=== PATIENT | male | born 1965 | race Caucasian/White ===

== ENCOUNTER 2024-04-12 13:32 | Outpatient (AMB) | payer BC, SELFPAY ==
[2024-04-12 13:36] VITALS: BP 160/98; PULSE 80; O2SAT 99; BMI 24.4
--- NOTE | 2024-04-12 13:36 | MHC.PC.OV ---
Vital Signs 04/12/24 13:36 04/12/24 14:16 Height 6 ft Weight 180 lb BMI 24.4 BP 160/98 H 148/82 H Blood Pressure Location Lt brachial Lt brachial Position Sitting Sitting Pulse 80 Pulse Source Pulse Oximeter Pulse Oximetry (%) 99 Oxygen Delivery Method Room Air Intake Visit Reasons: New Patient Intake Note: Patient is a new patient here to establish care Environmental Services Aide Required: No Allergies No Known Allergies Allergy (Verified 04/12/24 13:40) Medication List - Last Reconciled 04/12/24 by Qamar Fletcher MD tadalafil 10 mg PO DAILY PRN Tobacco use date assessed: 04/12/24 Dental Screening Dental Screen Date: 04/12/24 Did you have a dental visit in the last 12 months?: Yes Did you have a dental problem in the last 6 months where you did not have access to dental care?: No Was dental information given to patient?: Patient has dentist HPI New Patient HPI Details 59-year-old male seeing for the 1st time.gluten free diet PFSH Surgical History (Updated 04/12/24 @ 14:21 by Qamar Fletcher MD) History of vasectomy Hx of appendectomy Social History (Updated 04/12/24 @ 14:22 by Qamar Fletcher MD) Housing: House Alcohol intake: current Comment: once a month 1 drink Patient Tobacco Use Status: Never used Tobacco service: No Current occupational status: employed Cognitive needs: No Hearing needs: No Vision needs: No Questionnaire PHQ-9 Over the last 2 weeks, how often have you been bothered by any of the following problems? 1. Little interest or pleasure in doing things: not at all 2. Feeling down, depressed, or hopeless: not at all 3. Trouble falling or staying asleep, or sleeping too much: not at all 4. Feeling tired or having little energy: not at all 5. Poor appetite or overeating: not at all 6. Feeling bad about yourself - or that you are a failure or have let yourself or your family down: not at all 7. Trouble concentrating on things, such as reading the newspaper or watching television: not at all 8. Moving or speaking so slowly that other people could have noticed. Or the opposite - being so fidgety or restless that you have been moving around a lot more than usual: not at all 9. Thoughts that you would be better off or of hurting yourself in some way: not at all Total score: 0 Source: Developed by Drs. Sage Izaguirre, Micki Black, Escobar Reynoso and colleagues, with an educational john from [employer]. Thrive Questionnaire Date Thrive assessed: 04/09/24 I am a: Patient What is your living situation today?: I have a steady place to live Within the past 12 months, did the food you bought not last and you didn't have the money to get more?: Never true Within the past 12 months, did you worry whether your food would run out before you got money to buy more?: Never true Do you have trouble paying for medicines?: No Do you have trouble getting transportation to medical appointments?: No Do you have trouble paying your heating and electricity bill?: No Do you have trouble taking care of your child, family member or friend?: No Do you have trouble with day-to-day activities such as bathing, preparing meals, shopping, managing finances, etc.?: No Are you currently unemployed and looking for a job?: No Are you interested in more education?: I choose not to answer this question Please select the resources that you would like help with: None Currently or been in a relationship where the following occur: No concerns reported THRIVE Score: 0 AUDIT C Alcohol Use Questionnaire (AUDIT-C) 1. How often do you have a drink containing alcohol?: Monthly or less 2. How many drinks containing alcohol do you have on a typical day when you are drinking?: 1 or 2 3. How often do you have six or more drinks on one occasion?: Never Total Score: 1 ALONSO-7 AMB Questionnaire ALONSO-7 Date ALONSO - 7 assessed: 04/12/24 Feeling nervous, anxious, or on edge: 0 = Not at all Not being able to stop or control worryin = Not at all Worrying too much about different things: 0 = Not at all Trouble relaxin = Not at all Being so restless that it is hard to sit still: 0 = Not at all Becoming easily annoyed or irritable: 0 = Not at all Feeling afraid as if something awful might happen: 0 = Not at all Total ALONSO-7 score (0-4 normal; 5-9 mild; 10-14 moderate; 15-21 severe): 0 Source: Developed by Drs. Sage Izaguirre, Micki Black, Escobar Reynoso and colleagues, with an educational john from [employer]. ALONSO-7 Assessment Billing ALONSO-7 Assessment Tool: ALONSO-7 Assessment 22841 Physical exam (Primary Care) Vital Signs: Last Vital Signs Pulse 80 04/12/24 13:36 BP 148/82 H 04/12/24 14:16 Pulse Ox 99 04/12/24 13:36 Oxygen Delivery Method Room Air 04/12/24 13:36 BMI result Body Mass Index 24.4 Tobacco/Smoking Status: Tobacco use Status Tobacco use date assessed 04/12/24 04/12/24 13:37 Patient Tobacco Use Status Never used Tobacco 04/12/24 14:22 PHQ-9: PHQ-9 Score PHQ-9: Total score 0 04/12/24 14:12 Thrive Assessment: Date of Thrive Assessment Date Thrive assessed 04/09/24 04/12/24 13:37 Currently or been in a relationship where the following occur: No concerns reported Const General: alert; No acute distress Eyes Conjunctivae: conjunctivae normal Resp Auscultation: clear to auscultation bilaterally Cardio Rate: regular rate Rhythm: regular rhythm GI Inspection: Yes normal to inspection Extrem General: Yes normal to inspection and No edema Coding Level of Care Code New Pt Level 4 (61397) Diagnoses Colon cancer screening Z12.11 Erectile dysfunction due to arterial insufficiency N52.01 Erectile dysfunction type: vasculogenic Vasculogenic erectile dysfunction type: due to arterial insufficiency Blood pressure elevated without history of HTN R03.0 Additional Codes ALONSO-7 Assessment Billing - ALONSO-7 Assessment Tool: ALONSO-7 Assessment [id number] ([id number]) Assessment & Plan Assessment & Plan (1) Colon cancer screening: Code(s): Z12.11 - Encounter for screening for malignant neoplasm of colon Category: Medical Plan: Referral to Gastroenterology done (2) Erectile dysfunction: Code(s): N52.9 - Male erectile dysfunction, unspecified Category: Medical Qualifiers: Erectile dysfunction type: vasculogenic Vasculogenic erectile dysfunction type: due to arterial insufficiency Qualified Code(s): N52.01 - Erectile dysfunction due to arterial insufficiency Plan: Refill on tadalafil (3) Blood pressure elevated without history of HTN: Code(s): R03.0 - Elevated blood-pressure reading, without diagnosis of hypertension Category: Medical Plan: Advised to monitor blood pressure and record. Meanwhile low-salt diet. Orders: Orders Free T4 (Free Thyroxine) Today R03.0 - Elevated blood-pressure reading, without diagnosis of hypertension Complete Blood Count Auto Diff Today R03.0 - Elevated blood-pressure reading, without diagnosis of hypertension Comprehensive Met. Panel Today R03.0 - Elevated blood-pressure reading, without diagnosis of hypertension Thyroid Stimulating Hormone Today R03.0 - Elevated blood-pressure reading, without diagnosis of hypertension Vitamin B12 and Folate Today R03.0 - Elevated blood-pressure reading, without diagnosis of hypertension Lipid Panel Today E78.00 - Pure hypercholesterolemia, unspecified, R03.0 - Elevated blood-pressure reading, without diagnosis of hypertension Prostate Specific Antigen Scr Today R03.0 - Elevated blood-pressure reading, without diagnosis of hypertension Referrals Gastroenterology Referral Z12.11 - Encounter for screening for malignant neoplasm of colon Medications: New tadalafil administer approximately 30min before sexual activity; do not use more than 1 dose per 24hrs 10 mg PO DAILY 90 tabs 0RF Z12.11 - Encounter for screening for malignant neoplasm of colon
[2024-04-12 14:16] VITALS: BP 148/82
== END 2024-04-12 14:37 | disposition home or self-care (01) ==
LOC: HO.HMCH 13:33
PROVIDERS: PCP Internal Medicine; Visit Provider Internal Medicine
DX: Z12.11 Encounter for screening for malignant neoplasm of colon (principal); N52.01 Erectile dysfunction due to arterial insufficiency; R03.0 Elevated blood-pressure reading, without diagnosis of hypertension

== ENCOUNTER → 2024-04-12 13:32 | Outpatient (BNVA) | payer BC, SELFPAY | PROVIDERS: PCP Internal Medicine; Visit Provider Internal Medicine | DX: N52.01 Erectile dysfunction due to arterial insufficiency (principal); R03.0 Elevated blood-pressure reading, without diagnosis of hypertension | CPT/HCPCS: 96127 ==

== ENCOUNTER 2024-04-17 09:02 | Outpatient (REF) | payer BC, SELFPAY ==
[2024-04-17 09:19] LABS: MANUAL DIFF FLAG NO
[2024-04-17 09:39] LABS: Basophils Absolute Auto 0.1 X10*3/uL (0.0-0.2); Basophils Percent Auto 0.6 % (0-2); Eosinophils Absolute Auto 0.2 X10*3/uL (0.0-0.4); Hematocrit 48.9 % (42.0-52.0); Hemoglobin 16.8 g/dl (14.0-18.0); Imm Gran Abs Auto 0.05 X10*3/uL (0.00-0.03); Imm Gran Pct Auto 0.6 % (0.0-0.4); Lymphocytes Absolute Auto 2.1 X10*3/uL (1.2-4.9); Lymphocytes Percent Auto 25.8 % (20-40); Mean Corpuscular HGB Conc 34.4 g/dl (31.0-36.0); Mean Corpuscular Hemoglobin 30.7 pg (27.0-33.0); Mean Corpuscular Volume 89.4 fL (80.0-98.0); Mean Platelet Volume 11.1 fL (9.4-12.4); Monocytes Absolute Auto 0.6 X10*3/uL (0.1-1.2); Monocytes Percent Auto 7.7 % (2-11); Neutrophils Absolute Auto 5.2 x10*3/uL (2.0-8.3); Neutrophils Percent Auto 63.3 % (45-73); Platelet Count 216 X10*3/uL (160-400); Red Blood Count 5.47 X10*6/uL (4.60-5.80); White Blood Count 8.1 X10*3/uL (4.8-10.8)
[2024-04-17 10:49] LABS: Alanine Aminotransferase 30 U/L (0-40); Albumin Level 4.6 g/dL (3.5-5.0); Alkaline Phosphatase 68 U/L (39-117); Anion Gap 13 (12-20); Aspartate Amino Transferase 29 U/L (5-37); Bilirubin Total 0.8 mg/dL (0.0-1.0); Blood Urea Nitrogen 19 mg/dL (9-16); Calcium 9.8 mg/dL (8.4-10.2); Carbon Dioxide 24 mmol/L (22-29); Chloride 109 mmol/L (96-108); Cholesterol 186 mg/dL (<200); Estimated Glomerular Filt Rate > 60; Free T4 (Free Thyroxine) 0.89 ng/dL (0.71-1.85); Glucose Random 97 mg/dL (60-115); HDL Cholesterol 56 mg/dL (>40); LDL Cholesterol Calculated 113 mg/dL (<100); Potassium 4.6 mmol/L (3.3-5.1); Sodium 141 mmol/L (135-145); Thyroid Stimulating Hormone 1.41 uIU/mL (0.32-4.0); Total Protein 7.4 g/dL (6.5-8.0); Triglycerides 86 mg/dL (<150)
[2024-04-17 10:54] LABS: Prostate Specific Antigen Scr 1.98 ng/mL (<0.05-4.0); Vitamin B12 812 pg/mL (200-900)
== END 2024-04-17 09:03 | disposition home or self-care (01) ==
LOC: HO.LAB 09:02
PROVIDERS: PCP Internal Medicine; Visit Provider Internal Medicine
DX: R03.0 Elevated blood-pressure reading, without diagnosis of hypertension (principal); E78.00 Pure hypercholesterolemia, unspecified; Z12.5 Encounter for screening for malignant neoplasm of prostate
CPT/HCPCS: 36415; 80053; 80061; 82607; 82746; 84153; 84439; 84443; 85025

== ENCOUNTER 2024-11-30 11:06 | Outpatient (AMB) | payer BC, SELFPAY ==
[2024-11-30 11:08] VITALS: BP 106/80; PULSE 61; O2SAT 99; BMI 25.4
--- NOTE | 2024-11-30 11:08 | A.OFFPC_ITS ---
Vital Signs 11/30/24 11:08 Height 6 ft Weight 187 lb 2 oz BMI 25.4 BP 106/80 Blood Pressure Location Lt brachial Position Sitting Pulse 61 Pulse Source Pulse Oximeter Pulse Oximetry (%) 99 Oxygen Delivery Method Room Air Intake Visit Reasons: Annual PE Road Machine Operator Required: No Accompanied by: Self / Same As Patient Allergies No Known Allergies Allergy (Verified 11/30/24 11:08) Medication List - Last Reconciled 11/30/24 by Qamar Fletcher MD Bacillus coagulans (Digestive Advantage Probiotic Gummy) 500 mmu cells PO DAILY cholecalciferol (vitamin D3) 25 mcg PO DAILY multivitamin 1 tab PO DAILY tadalafil 10 mg PO DAILY Tobacco use date assessed: 11/30/24 Dental Screening Dental Screen Date: 11/30/24 HPI Annual PE HPI Details gluter sensitivy [facility] Medical History (Updated 11/30/24 @ 11:28 by Qamar Fletcher MD) Blood pressure elevated without history of HTN Surgical History History of vasectomy Hx of appendectomy Social History Housing: House Alcohol intake: current Comment: once a month 1 drink Patient Tobacco Use Status: Never used Tobacco e-Cigarette/Vaping Use: Never Used service: No Current occupational status: employed Cognitive needs: No Hearing needs: No Vision needs: No Questionnaire PHQ-9 Over the last 2 weeks, how often have you been bothered by any of the following problems? 1. Little interest or pleasure in doing things: not at all 2. Feeling down, depressed, or hopeless: not at all 3. Trouble falling or staying asleep, or sleeping too much: not at all 4. Feeling tired or having little energy: not at all 5. Poor appetite or overeating: not at all 6. Feeling bad about yourself - or that you are a failure or have let yourself or your family down: not at all 7. Trouble concentrating on things, such as reading the newspaper or watching television: not at all 8. Moving or speaking so slowly that other people could have noticed. Or the opposite - being so fidgety or restless that you have been moving around a lot more than usual: not at all 9. Thoughts that you would be better off or of hurting yourself in some way: not at all Total score: 0 Source: Developed by Drs. Sage Izaguirre, Micki Black, Escobar Reynoso and colleagues, with an educational john from [employer]. Thrive Questionnaire Date Thrive assessed: 11/30/24 I am a: Patient What is your living situation today?: I have a steady place to live Within the past 12 months, did the food you bought not last and you didn't have the money to get more?: Never true Within the past 12 months, did you worry whether your food would run out before you got money to buy more?: Never true Do you have trouble paying for medicines?: No Do you have trouble getting transportation to medical appointments?: No Do you have trouble paying your heating and electricity bill?: No Do you have trouble taking care of your child, family member or friend?: No Do you have trouble with day-to-day activities such as bathing, preparing meals, shopping, managing finances, etc.?: No Are you currently unemployed and looking for a job?: Yes Are you interested in more education?: No Please select the resources that you would like help with: None Currently or been in a relationship where the following occur: No concerns reported THRIVE Score: 0 AUDIT C Alcohol Use Questionnaire (AUDIT-C) 1. How often do you have a drink containing alcohol?: Monthly or less 2. How many drinks containing alcohol do you have on a typical day when you are drinking?: 1 or 2 3. How often do you have six or more drinks on one occasion?: Never Total Score: 1 ALONSO-7 AMB Questionnaire ALONSO-7 Date ALONSO - 7 assessed: 11/30/24 Feeling nervous, anxious, or on edge: 0 = Not at all Not being able to stop or control worryin = Not at all Worrying too much about different things: 0 = Not at all Trouble relaxin = Not at all Being so restless that it is hard to sit still: 0 = Not at all Becoming easily annoyed or irritable: 0 = Not at all Feeling afraid as if something awful might happen: 0 = Not at all Total ALONSO-7 score (0-4 normal; 5-9 mild; 10-14 moderate; 15-21 severe): 0 Source: Developed by Drs. Sage Izaguirre, Micki Black, Escobar Reynoso and colleagues, with an educational john from [employer]. Review of Systems Const Denies poor appetite and Denies weakness Eyes Denies no additional complaints ENT Reports Normal hearing present, Denies dizziness, Denies nasal congestion, Denies tinnitus and Denies sore throat Card Denies chest pain, Denies syncope, Denies rapid heart rate and Denies dyspnea Resp Denies cough and Denies dyspnea GI Denies change in stool character, Reports constipation, Denies diarrhea, Denies nausea and Denies vomiting Denies dysuria and Denies urinary frequency Neuro Reports Normal hearing present, Denies confusion, Denies dizziness, Denies syncope and Denies weakness Psych Denies confusion Physical exam (Primary Care) Vital Signs: Last Vital Signs Pulse 61 11/30/24 11:08 BP 106/80 11/30/24 11:08 Pulse Ox 99 11/30/24 11:08 Oxygen Delivery Method Room Air 11/30/24 11:08 BMI result Body Mass Index 25.4 Tobacco/Smoking Status: Tobacco use Status Tobacco use date assessed 11/30/24 11/30/24 11:14 Patient Tobacco Use Status Never used Tobacco 11/30/24 11:14 e-Cigarette/Vaping Use Never Used 11/30/24 11:14 PHQ-9: PHQ-9 Score PHQ-9: Total score 0 11/30/24 11:42 Thrive Assessment: Date of Thrive Assessment Date Thrive assessed 11/30/24 11/30/24 11:14 Currently or been in a relationship where the following occur: No concerns reported Const General: No confusion Orientation/consciousness: No confusion HENMT Head: Yes normocephalic Ears: external ears normal and TM's normal bilaterally Face and sinus: Yes normal facial exam Mouth: moist mucous membranes Throat: Yes tonsils normal Eyes Conjunctivae: conjunctivae normal Pupils: Equal, round and reactive pupils present and Pupil accommodation reflex normal Direct Ophthalmoscopy: normal light reflex Neck Neck: No lymphadenopathy Thyroid: Thyroid normal Chest Chest palpation & inspection: normal inspection of the chest Resp Effort & Inspection: normal respiratory effort and no audible wheezes Auscultation: clear to auscultation bilaterally, no crackles, no wheezes and lung sounds not diminished Cardio Rate: regular rate Rhythm: regular rhythm Peripheral pulses: radial pulses present and dorsalis pedis present GI Palpation (GI): no masses Auscultation: normal bowel sounds and normoactive bowel sounds Rectal Exam - Male: Yes deferred Skin General skin exam: no rashes or lesions noted Rashes: no rashes Neuro General: No confusion Cranial nerves: Yes Equal, round and reactive pupils present and Yes Normal hearing present Cognition (Neuro): normal cognition Gait exam (Neuro): Normal gait present Motor exam (neuro): 5/5 motor strength present throughout Deep tendon reflexes (DTR's): Right brachioradialis reflex intensity grade: 2+, Left brachioradialis reflex intensity grade: 2+, Right patellar reflex intensity grade: 2+ and Left patellar reflex intensity grade: 2+ Extrem General: No edema Immunizations Boostrix Tdap 2.5 Lf unit-8 mcg-5 Lf/0.5 mL intramuscular syringe Performing Provider: Qamar Fletcher MD [facility] [place] [facility] Administered by: JAMEL Tejeda on 11/30/24 11:42 Dose Route Admin Location Dispensed Lot Number Expiration Date NDC Copy Machine Operator 0.5 mL IM Left Deltoid 0.5 mL [id number] 02/11/27 80715-760-02 [employer] VIS Given Date VIS Provided VIS Publication Date 11/30/24 Single Vaccine 21 Eligibility Eligibility Date Funding Source Not [facility] Eligible 11/30/24 Private Coding Level of Care Code Est Pt Prev Care 40-64y(50027) Diagnoses Annual physical exam Z00. Colon cancer screening Z12. Erectile dysfunction due to arterial insufficiency N52.01 Erectile dysfunction type: vasculogenic Vasculogenic erectile dysfunction type: due to arterial insufficiency BPH (benign prostatic hyperplasia) N40.0 Assessment & Plan Assessment & Plan (1) Annual physical exam: Code(s): Z00.00 - Encounter for general adult medical examination without abnormal findings Category: Medical Plan: Patient is advised to eat healthy, keep well hydrated, keep active and have adequate sleep. (2) Colon cancer screening: Code(s): Z12.11 - Encounter for screening for malignant neoplasm of colon Category: Medical Plan: Patient is scheduled to meet with a tablet technician in December 2024 (3) Erectile dysfunction: Code(s): N52.9 - Male erectile dysfunction, unspecified Category: Medical Qualifiers: Erectile dysfunction type: vasculogenic Vasculogenic erectile dysfunction type: due to arterial insufficiency Qualified Code(s): N52.01 - Erectile dysfunction due to arterial insufficiency Plan: Patient on tadalafil (4) BPH (benign prostatic hyperplasia): Code(s): N40.0 - Benign prostatic hyperplasia without lower urinary tract symptoms Category: Medical Plan History of Present Illness The patient is a 59-year-old male presenting for a physical examination with concerns about blood pressure and erectile dysfunction. The patient reports a history of hypertension, with recent blood pressure readings on the lower side, potentially due to recent stress and lifestyle changes, including a recent job loss and a trip to [place] where he engaged in physical activities such as backpacking. He denies any dizziness or syncope associated with the lower blood pressure readings. The patient has been experiencing erectile dysfunction and is currently taking tadalafil, which was prescribed after a consultation with a urologist who noted a slightly enlarged prostate but not significant enough to warrant further intervention. The medication has improved his symptoms, allowing him to sleep through the night without frequent urination. In August, the patient experienced a shingles outbreak, initially mistaking it for poison marko due to similar symptoms. The shingles were confirmed due to the characteristic rash and nerve pain, which has since subsided, although occasional tingling persists. The patient reports gluten intolerance, which causes gastrointestinal discomfort and arthritis-like symptoms in his hips when gluten is consumed. He manages these symptoms with a gluten-free diet and probiotics, which he believes help alleviate the symptoms. 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, previously engaged in business travel - Family: Has two daughters and a son, one daughter lives in [place], another in [place] - Exercise: Engages in physical activities such as backpacking and trail running - Diet: Follows a gluten-free diet due to gluten intolerance - Alcohol: Consumes alcohol once every couple of months - Supplements: Takes multivitamins, vitamin D, and probiotics Review of Systems - Cardiovascular: Denies chest pain, dizziness, or syncope - Respiratory: Denies dyspnea or cough - Gastrointestinal: Reports gluten intolerance causing gastrointestinal discomfort - Neurological: Reports occasional tingling post-shingles - Musculoskeletal: Denies joint pain, reports arthritis-like symptoms with gluten consumption - Genitourinary: Denies nocturia, reports improved urinary symptoms with tadalafil Physical Exam General: Cooperative, healthy appearing, comfortable, no acute distress and well developed Orientation: Patient oriented x3 Limitations: No limitations Head: Normal to inspection Ears: Hearing grossly normal bilaterally Nose: Normal external nose present Face and sinus: Normal facial exam Eyes: Appearance normal, both eyes and all related structures Neck: Normal visual inspection and Yes full ROM Respiratory: Normal respiratory effort and able to speak in complete sentences. Clear to auscultation bilaterally Cardiovascular: Regular rate and rhythm. Normal S1 and S2 GI: Normal to inspection. Soft to palpation and nontender Skin: No rashes or lesions noted Neuro: Patient oriented x3 Extremities: Normal to inspection Results - Labs: Blood work from April 2024 showed normal blood count, electrolytes, renal function, blood sugar, liver function, cholesterol, prostate-specific antigen, vitamin B12, folic acid, and thyroid function Plan The patient will continue monitoring his blood pressure, especially in light of recent lifestyle changes and stressors such as job loss. He is advised to maintain a healthy diet and exercise routine to manage his hypertension effectively. For erectile dysfunction, the patient will continue using tadalafil, which has shown improvement in symptoms. He is encouraged to follow up with his urologist as needed for further management. Regarding shingles, the patient is informed about the availability of the shingles vaccine at pharmacies and is advised to consider vaccination in the coming months to prevent recurrence. The patient is advised to continue his gluten-free diet to manage his gluten intolerance and associated symptoms. He should monitor for any changes in symptoms and adjust his diet accordingly. Preventative care measures include a scheduled gastroenterology consultation in December 2024 and administration of the Tdap vaccine during this visit. Patient was informed and verbally consented to the use of an ambient scribe for clinic note documentation during this visit. Discussion Notes During the visit, I discussed with the patient the importance of monitoring his blood pressure and maintaining a healthy lifestyle to manage hypertension. We reviewed the benefits of continuing tadalafil for erectile dysfunction and the need for follow-up with a urologist if symptoms persist. I informed him about the shingles vaccine available at pharmacies and recommended considering vaccination to prevent recurrence. We also discussed the importance of adhering to a gluten-free diet to manage his gluten intolerance and associated symptoms. Preventative care measures, including a gastroenterology consultation and Tdap vaccination, were also planned. Patient Instructions - Monitor your blood pressure regularly and maintain a healthy diet and exercise routine. - Continue taking tadalafil as prescribed and follow up with your urologist if needed. - Consider getting the shingles vaccine at a pharmacy in the coming months. - Adhere to your gluten-free diet and monitor for any changes in symptoms. - Attend your scheduled gastroenterology consultation in December 2024. - Receive the Tdap vaccine as planned during this visit. Orders: Orders Complete Blood Count Auto Diff 1 Year N40.0 - Benign prostatic hyperplasia without lower urinary tract symptoms Comprehensive Met. Panel 1 Year N40.0 - Benign prostatic hyperplasia without lower urinary tract symptoms TDaP Immunization Today Z23 - Encounter for immunization Free T4 (Free Thyroxine) 1 Year N40.0 - Benign prostatic hyperplasia without lower urinary tract symptoms Lipid Panel 1 Year E78.00 - Pure hypercholesterolemia, unspecified, N40.0 - Benign prostatic hyperplasia without lower urinary tract symptoms Thyroid Stimulating Hormone 1 Year N40.0 - Benign prostatic hyperplasia without lower urinary tract symptoms Vitamin B12 and Folate 1 Year N40.0 - Benign prostatic hyperplasia without lower urinary tract symptoms Prostate Specific Antigen Scr 1 Year N40.0 - Benign prostatic hyperplasia without lower urinary tract symptoms
== END 2024-11-30 11:43 | disposition home or self-care (01) ==
PROVIDERS: PCP Internal Medicine; Visit Provider Internal Medicine
DX: Z00.00 Encounter for general adult medical examination without abnormal findings (principal); Z12.11 Encounter for screening for malignant neoplasm of colon; N52.01 Erectile dysfunction due to arterial insufficiency; N40.0 Benign prostatic hyperplasia without lower urinary tract symptoms; Z23 Encounter for immunization

== ENCOUNTER → 2024-11-30 11:06 | Outpatient (BNVA) | payer BC, SELFPAY | PROVIDERS: PCP Internal Medicine; Visit Provider Internal Medicine | DX: Z00.00 Encounter for general adult medical examination without abnormal findings (principal); N52.01 Erectile dysfunction due to arterial insufficiency; N40.0 Benign prostatic hyperplasia without lower urinary tract symptoms; Z23 Encounter for immunization | CPT/HCPCS: 90471; 90715; 96127 ==

== ENCOUNTER 2025-01-05 15:48 | Outpatient (AMB) | payer BC, SELFPAY ==
[2025-01-05 15:52] VITALS: BP 137/76; PULSE 70; BMI 26.0
--- NOTE | 2025-01-05 15:52 | A.OFFVIS_ITS ---
Vital Signs 01/05/25 15:52 Height 6 ft Weight 192 lb BMI 26.0 BP 137/76 Blood Pressure Location Rt brachial Position Sitting Pulse 70 Intake Visit Reasons: colo screening Intake Note: New patient in office today for colonoscopy screening. CC: Patient states that he is here because he is overdue for a colonoscopy. He has never had a colonoscopy done. Per patient he has not been diagnosed with any gluten intolerance; but once he stopped consuming gluten he was able to stop taking PPI medication, and stopped feeling bloated. [employer] Operator Required: No Accompanied by: Self / Same As Patient Allergies No Known Allergies Allergy (Verified 01/05/25 15:55) HPI HPI colo screening: Details: 59-YEAR-OLD MALE HERE for preprocedural meeting to discuss a screening colonoscopy. He is referred by Qamar Fletcher. PMX BPH Erectile dysfunction * SURGICAL HISTORY Vasectomy Appendectomy * ALLERGIES: NKDA * [employer] LABS: None since 2023 TODAY'S VISIT This is his first colonoscopy. He avoids gluten and he feels better eating this way, his dtr has Celiac disease, and he thinks this was r/t his severe arthritis and GERD which has since not needed tx. He currently has not problems. He denies cardiac or respiratory problems. No anes or sedation problems in the past. NO ID problems. THere is no known FHX of crc or polyps. [facility] Medical History (Updated 01/05/25 @ 16:05 by AMADOR Smith) Annual physical exam Colon cancer screening Blood pressure elevated without history of HTN Surgical History History of vasectomy Hx of appendectomy Social History Housing: House Alcohol intake: current Comment: once a month 1 drink Patient Tobacco Use Status: Never used Tobacco e-Cigarette/Vaping Use: Never Used service: No Current occupational status: employed Cognitive needs: No Hearing needs: No Vision needs: No Review of Systems Const Denies fatigue, Denies fever(s), Denies night sweats, Denies poor appetite and Denies weight loss Eyes Details: Glasses Reports requires corrective lenses ENT Reports Normal hearing present, Denies dental pain, Denies dysphagia, Denies hearing loss, Denies mouth pain, Denies odynophagia, Denies throat swelling, Denies tongue swelling and Reports other (Dentition adequate) Card Reports no additional complaints Resp Reports no additional complaints GI Details: Denies abdominal pain, Denies melena, Denies bloating, Denies hematochezia, Denies constipation, Denies GI cramping, Denies dysphagia, Denies excessive flatus, Denies early satiety, Denies heartburn, Denies diarrhea, Denies nausea, Denies odynophagia, Denies vomiting and Denies hematemesis Skin/Breast Denies pruritus, Denies lesions, Denies rash and Denies jaundice Neuro Reports Normal hearing present and Denies Abnormal speech present Endo Denies fatigue Aller/Immun Denies throat swelling and Denies tongue swelling Physical Exam Vital Signs: Last Vital Signs Pulse 70 01/05/25 15:52 BP 137/76 01/05/25 15:52 BMI result Body Mass Index 26.0 Const General: cooperative, no acute distress, well developed and well groomed Nutritional Appearance: well nourished Orientation/consciousness: oriented to person, oriented to place and oriented to time Limitations: No language barrier HEENT Head: Yes normocephalic and Yes atraumatic Eyes General: appearance normal, both eyes and all related structures Pupils: Equal, round and reactive pupils present Neck Neck: Yes normal visual inspection and Yes no lymphadenopathy Thyroid: Thyroid normal Resp Effort & Inspection: normal respiratory effort and able to speak in complete sentences Auscultation: clear to auscultation bilaterally Cardio Rate: regular rate Rhythm: regular rhythm Heart sounds: Normal, physiologic split S2 sound present Peripheral pulses: radial pulses present and posterior tibial pulses present GI Inspection: No distended and No Abdominal panniculus present Palpation (GI): Soft to palpation, nontender, no guarding, not rigid and No hepatosplenomegaly present Percussion: Yes normal to percussion Auscultation: normal bowel sounds Rectal Exam - Male: Yes deferred Skin General skin exam: no rashes or lesions noted, turgor normal, skin not dry, no jaundice, No spider nevi and no striae Rashes: no rashes Nails: normal Neuro General: oriented to person, oriented to place and oriented to time Cranial nerves: Yes Equal, round and reactive pupils present and Yes Normal hearing present Speech: No Abnormal speech present Extrem General: Yes normal to inspection, No clubbing, No cyanosis and No edema Psych Appearance: grossly normal and well kempt Mental Status: mental status grossly normal Speech and movement: Normal speech and movement present Affect: normal affect Attitude: cooperative Thought process: Normal thought process present and not confabulating Thought content: Normal thought content present Insight: Good insight present (Psych) Judgement: Good judgement present (Psych) Assessment & Plan Assessment & Plan (1) Pre-op examination: Code(s): Z01.818 - Encounter for other preprocedural examination Category: Medical Plan This is his first colonoscopy. He avoids gluten and he feels better eating this way, his dtr has Celiac disease, and he thinks this was r/t his severe arthritis and GERD which has since not needed tx. He currently has not problems. He denies cardiac or respiratory problems. No anes or sedation problems in the past. NO ID problems. THere is no known FHX of crc or polyps Orders: Orders Comprehensive Met. Panel Today Z01.818 - Encounter for other preprocedural examination Complete Blood Count Auto Diff Today Z01.818 - Encounter for other preprocedural examination Colonoscopy - GI Use Only Today Z01.818 - Encounter for other preprocedural examination Medications: New polyethylene glycol 3350 (Miralax) 238 grams PO ONCE 238 grams 0RF colonoscopy prep 1 day bisacodyl (Dulcolax (bisacodyl)) 10 mg (2 x 5 mg) PO BEDTIME 4 tabs 0RF 2 days Coding Level of Care Code New Pt Level 3 (36956) Diagnoses Pre-op examination Z01.818
== END 2025-01-05 16:23 | disposition home or self-care (01) ==
LOC: HO.HGI 15:48
PROVIDERS: PCP Internal Medicine; Visit Provider Nurse Practitioner
DX: Z01.818 Encounter for other preprocedural examination (principal); Z12.11 Encounter for screening for malignant neoplasm of colon
CPT/HCPCS: S0285